=== PATIENT | female | born 1930 | race Caucasian/White ===

== ENCOUNTER 2018-06-28 17:41 | Emergency (ER) | payer MEDICARE, MEDICAID ==
[~2018-06-28] VITALS: Ht 157.5 cm; Wt 54.5 kg
--- NOTE | 2018-06-28 17:46 | NUR ---
PRISCILA RN: THIS IS AN 87 YO FEMALE WHO PRESENTS TO THE ER C/O MID/CENTER ABD PAIN WITH "VERY LITTLE" DIARRHEA X 1.5 WEEKS, RATING THE PAIN 6/10 AND DESCRIBING IT "A FUNNY FEELING". PT ALSO C/O DECREASED APPETITE. PT VAGUE ABOUT SYMPTOMS. PT AO X 4. SKIN PWD. RESP EVEN AND EQAUL. NAD NOTED. PT ON CONT BP AND O2 MONITORS. PA ANN AT BEDSIDE FOR EVAL.
--- NOTE | 2018-06-28 18:08 | NUR ---
RECIEVED REPORT FROM SID WHEELER. ALL QUESTIONS ANSWERED.
[2018-06-28] MEDS ORDERED: MORPHINE SULFATE 4 MG/ML, 1ML ONE (18:25)
[2018-06-28] MEDS ORDERED: ONDANSETRON 2MG/ML, 2ML ONE (18:25)
[2018-06-28] MEDS ORDERED: FAMOTIDINE 20 MG/2 ML ONE (18:25)
[2018-06-28] MEDS ORDERED: MORPHINE SULFATE 4 MG/ML, 1ML IVPush PRN (18:30)
[2018-06-28] MEDS ORDERED: FAMOTIDINE 20 MG/2 ML IVP ONE (18:30)
[2018-06-28] MEDS ORDERED: ONDANSETRON 2MG/ML, 2ML IVPush ONE (18:30)
[2018-06-28 18:39] LABS: BASOPHILS # (AUTO) 0.03 x10^3/uL (0-0.1); BASOPHILS % (AUTO) 0 % (0-1); EOSINOPHILS # (AUTO) 0.15 x10^3/uL (0-0.4); EOSINOPHILS % (AUTO) 2 % (1-7); LYMPHOCYTES # (AUTO) 1.45 x10^3/uL (1-3.4); LYMPHOCYTES % (AUTO) 18 % (22-44); MD NO; MEAN CORPUSCULAR HEMOGLOBIN 31.8 pg (27.0-34.8); MEAN CORPUSCULAR HGB CONC 33.6 g/dL (32.4-35.8); MEAN CORPUSCULAR VOLUME 94.5 fL (80-100); MEAN PLATELET VOLUME 7.5 fL (7.4-10.4); MONOCYTES # (AUTO) 0.42 x10^3/uL (0.2-0.8); MONOCYTES % (AUTO) 5 % (2-9); NEUTROPHILS # (AUTO) 5.84 x10^3/uL (1.8-6.8); NEUTROPHILS % (AUTO) 74 % (42-75); PLATELET COUNT 346 x10^3/uL (130-400); RED CELL DISTRIBUTION WIDTH 14.9 % (9.6-15.2)
[2018-06-28 18:49] LABS: ALBUMIN 3.5 g/dL (3.4-5.0); ANION GAP 6 mmol/L (5-15); CHLORIDE 101 mmol/L (98-107)
[2018-06-28 18:52] LABS: ALANINE AMINOTRANSFERASE 18 U/L (12-78); ALKALINE PHOSPHATASE 65 U/L (45-117); BILIRUBIN,TOTAL 0.3 mg/dL (0.2-1.0); CREATININE 1.65 mg/dL (0.55-1.02); TOTAL PROTEIN 7.1 g/dL (6.4-8.2)
--- NOTE | 2018-06-28 18:57 | NUR ---
PROVIDED REPORT TO SID FOOTE. ALL QUESTIONS ANSWERED.
--- NOTE | 2018-06-28 19:39 | NUR ---
PT MEDICATED PER EMAR. PAIN MEDS HELD AT THIS TIME REQUESTED BY PT. VSS AND WILL CONT TO MONITOR.
[2018-06-28 19:42] LABS: MICROSCOPIC INDICATED
[2018-06-28 20:17] LABS: CULTURE INDICATED? NO
[2018-06-28 20:31] VITALS: BP 129/48
== END 2018-06-28 20:33 | disposition home or self-care (01) ==
LOC: ED 19:22
DX: R10.33 Periumbilical pain (principal); N18.9 Chronic kidney disease, unspecified; Z90.710 Acquired absence of both cervix and uterus
CPT/HCPCS: 36415; 71046; 74176; 80053; 81001; 83690; 84484; 85025; 93005; 96374; 96375; 99284; J2405; J3490